=== PATIENT | male | born 1950 | race Caucasian/White ===

== ENCOUNTER 2019-01-06 09:41 | Emergency (ER) | payer MEDICARE, OTHER ==
[2019-01-06] MEDS ORDERED: Diph,Pert(Acell),Tet Vac 0.5 ML SYR IM ONE (10:02)
--- NOTE | 2019-01-06 10:13 | Emergency Department Record ---
History of Present Illness - General Chief complaint: Head Injury Stated complaint: FELL HIT HEAD Time Seen by Provider: 01/06/19 09:51 Source: Patient Mode of Arrival: Ambulatory Limitations: No limitations - History of Present Illness Initial comments: The patient slipped on the ice and hit his head on cement steps about an hour ago. He suffered a laceration to his scalp over the superior occiput. He had no LOC but was quite dazed after and has had no THOMPSON, neck pain, nausea, vomiting, confusion or balance issues since. The patient is not on any blood thinners and is ambulating normally. MD Complaint: Head injury Onset/Timin -: Minutes(s) Mechanism of Injury: Other Location: Occipital Place: Home Severity scale (1-10): 3 Other Injuries: Laceration - Related Data Home Medications Medication Instructions Recorded Confirmed Last Taken Atorvastatin Calcium [Lipitor] 40 mg PO QHS 01/06/19 01/06/19 01/05/19 Doxazosin Mesylate [Cardura] 4 mg PO QHS 01/06/19 01/06/19 01/05/19 Allergies/Adverse reactions: Allergies Allergy/AdvReac Type Severity Reaction Status Date / Time No Known Drug Allergies Allergy Verified 01/06/19 09:52 Travel Screening - Travel/Exposure Within Last 30 Days Have you traveled within the last 30 days?: No - Travel/Exposure Within Last Year Have you traveled outside the [place] in the last year?: Yes Location Detail:: [place] - Additonal Travel Details Have you been exposed to anyone with a communicable illness?: No - Travel Symptoms Symptom Screening: None Review of Systems Constitutional: Denies: Chills, Fever Eyes: Denies: Eye discharge ENT: Denies: Congestion Respiratory: Denies: Cough, Dyspnea Past Medical History - SOCIAL HISTORY Smoking Status: Never smoker Alcohol Use: None Drug Use: None - RESPIRATORY Hx Respiratory Disorders: No - CARDIOVASCULAR Hx Cardio Disorders: Yes Hx Hypertension: Yes Comment:: high cholesterol - NEURO Hx Neuro Disorders: No - GI Hx GI Disorders: No - Hx Genitourinary Disorders: Yes Hx Prostate Problems: Yes - ENDOCRINE Hx Endocrine Disorders: No - MUSCULOSKELETAL Hx Musculoskeletal Disorders: Yes Hx Arthritis: Yes - PSYCH Hx Psych Problems: No - HEMATOLOGY/ONCOLOGY Hx Hematology/Oncology Disorders: No Family Medical History Any Significant Family History?: No Physical Exam - General General Appearance: Alert, Oriented x3, Cooperative, No acute distress - Head Head exam: Normocephalic. negative: Atraumatic, Normal inspection (There is a 4 cm laceration to the mid superior occiput.) Image of Face/Head: 1 - Area of laceration. - Eye Eye exam: Normal appearance, PERRL - ENT ENT exam: TM's normal bilaterally - Neck Neck exam: Normal inspection, Full ROM. negative: Tenderness (There is no Cspine tenderness.) - Respiratory Respiratory exam: Normal lung sounds bilaterally. negative: Respiratory distress - Cardiovascular Cardiovascular Exam: Regular rate, Normal rhythm, Normal heart sounds - GI/Abdominal GI/Abdominal exam: Soft, Normal bowel sounds. negative: Tenderness - Neurological Neurological exam: Alert, Normal gait, Oriented X3, Other. negative: Abnormal gait, Altered, Motor sensory deficit - Skin Skin exam: negative: Rash Course Vital Signs 01/06/19 09:43 Temperature 98.1 F Pulse Rate 57 L Respiratory 20 Rate Blood Pressure 138/77 Pulse Ox 98 - Reevaluation(s) Reevaluation #1: Procedure note: The lac was anesth. with 3 cc's Lido 1% with Epi. The wound was prepped with betadine and cleansed with sterile saline. The wound was not thru the dermis and not down to bone. It was then closed with 7 3.0 Prolene sutures. There were no complications. 01/06/19 11:03 Reevaluation #2: The patient did become quite lightheaded and nauseated during the suturing so a head CT was ordered. 01/06/19 11:04 Reevaluation #3: The patient is doing very well at this time. He only has very minor head pain at the site of the injury. He is up walking normally with no confusion, nausea, or vomiting and feels ready for home. 01/06/19 11:47 Medical Decision Making - Data Complexity MDM Data: X-Ray Ordered and/or Reviewed - Radiology Data Radiology results: Report reviewed (Head CT: Neg.) Disposition Disposition: Discharge Clinical Impression: Laceration of scalp Qualifiers: Encounter type: initial encounter Qualified Code(s): S01.01XA - Laceration without foreign body of scalp, initial encounter Disposition: Home, Self-Care Condition: (2) Stable Instructions: Laceration (ED) Additional Instructions: Take Tylenol for pain and keep the sutures dry for 2 days. Have the sutures removed in 9 days. Return to the ER for any worsening head pain, vomiting, confusion or balance issues. Forms: Patient Portal Access Time of Disposition: 11:49 Quality - Quality Measures Quality Measures: N/A - Blood Pressure Screening View Details: Yes Does Patient Have Any of the Following: No Blood Pressure Classification: Pre-Hypertensive BP Reading Systolic Measurement: 138 Diastolic Measurement: 77 Screening for High Blood Pressure: < Pre-Hypertensive BP, F/U Documented > [ G8950] Pre-Hypertensive Follow-up Interventions: Referral to alternative/primary care provider.
--- NOTE | 2019-01-09 18:59 | CT SCAN REPORT ---
EXAM: CT SCAN HEAD WO CONTRAST HISTORY: SLIP AND FALL ON ICE. TRAUMA TO TOP OF HEAD WITH LACERATION. TECHNIQUE: Routine noncontrast CT of the brain is performed. COMPARISON: None. FINDINGS: There is borderline to mild prominence of the subarachnoid spaces suggesting age-related atrophy. The ventricles are not enlarged. No suspicious area of abnormally increased or decreased attenuation is noted throughout the brain substance. No abnormal extraaxial fluid collection is seen. No skull fracture is identified. There is atherosclerotic calcification of the distal internal carotid arteries. There is mild mucosal thickening with the left maxillary sinus. The visualized paranasal sinuses and mastoid air cells are otherwise clear. A large amount of cerumen is suggested in each external auditory canal. Post cataract surgery changes are noted bilaterally. No large cephalohematoma visualized. There is mild soft tissue swelling in the high posterior parietal region near the midline. IMPRESSION: 1. NO ACUTE INTRACRANIAL ABNORMALITY NOR SKULL FRACTURE. 2. 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 3. MINOR SOFT TISSUE SWELLING AND SUBCUTANEOUS EMPHYSEMA IN THE HIGH POSTERIOR PARIETAL SCALP NEAR THE MIDLINE. JOB NUMBER: [id number] [facility]
== END 2019-01-06 11:56 | disposition home or self-care (01) ==
LOC: ER 09:41
DX: S01.01XA Laceration without foreign body of scalp, initial encounter (principal); R51 Headache; R42 Dizziness and giddiness; R11.0 Nausea; W00.1XXA Fall from stairs and steps due to ice and snow, initial encounter; Y92.009 Unspecified place in unspecified non-institutional (private) residence as the place of occurrence of the external cause; I10 Essential (primary) hypertension
CPT/HCPCS: 12002; 70450; 90715; 96372; 99283; 99284

== ENCOUNTER 2019-01-15 09:09 | Emergency (ER) | payer MEDICARE ==
--- NOTE | 2019-01-15 09:21 | Emergency Department Record ---
History of Present Illness - General Chief Complaint: Suture removal Stated Complaint: SUTURE REMOVAL Time Seen by Provider: 01/15/19 09:09 Source: Patient Mode of arrival: Ambulatory Limitations: No limitations - History of Present Illness Initial Comments: The patient is here for suture removal. He denies any problems. Complaint: Suture/staple removal Onset/Timin -: Minutes(s) - Related Data Allergies Allergy/AdvReac Type Severity Reaction Status Date / Time No Known Drug Allergies Allergy Verified 01/06/19 09:52 Travel Screening - Travel/Exposure Within Last 30 Days Have you traveled within the last 30 days?: No - Travel/Exposure Within Last Year Have you traveled outside the [place] in the last year?: No - Additonal Travel Details Have you been exposed to anyone with a communicable illness?: No - Travel Symptoms Symptom Screening: None Past Medical History - SOCIAL HISTORY Smoking Status: Never smoker Alcohol Use: None Drug Use: None - RESPIRATORY Hx Respiratory Disorders: No - CARDIOVASCULAR Hx Cardio Disorders: Yes Hx Hypertension: Yes Comment:: high cholesterol - NEURO Hx Neuro Disorders: No - GI Hx GI Disorders: No - Hx Genitourinary Disorders: Yes Hx Prostate Problems: Yes - ENDOCRINE Hx Endocrine Disorders: No - MUSCULOSKELETAL Hx Musculoskeletal Disorders: Yes Hx Arthritis: Yes - PSYCH Hx Psych Problems: No - HEMATOLOGY/ONCOLOGY Hx Hematology/Oncology Disorders: No Family Medical History Any Significant Family History?: No Course Vital Signs 01/15/19 09:11 Temperature 98.1 F Pulse Rate 63 Respiratory 16 Rate Blood Pressure 139/80 Pulse Ox 96 Disposition Disposition: Discharge Clinical Impression: Visit for suture removal Disposition: Home, Self-Care Condition: (2) Stable Instructions: Stitches Removal (ED) Additional Instructions: Return to the ER for any problems. Forms: Patient Portal Access Time of Disposition: : Quality - Quality Measures Quality Measures: N/A - Blood Pressure Screening View Details: Yes Does Patient Have Any of the Following: No Blood Pressure Classification: Pre-Hypertensive BP Reading Systolic Measurement: 139 Diastolic Measurement: 80 Screening for High Blood Pressure: < Pre-Hypertensive BP, F/U Documented > [ G8950] Pre-Hypertensive Follow-up Interventions: Referral to alternative/primary care provider.
== END 2019-01-15 09:24 | disposition home or self-care (01) ==
LOC: ER 09:09
DX: Z48.02 Encounter for removal of sutures (principal)